=== PATIENT | female | born 1990 | race Caucasian/White ===

== ENCOUNTER 2023-10-26 21:26 | Observation (INO) | payer OTHER, SELFPAY ==
[2023-10-26 16:50] VITALS: BP 120/88
[2023-10-26] MEDS: ZOFRAN ODT (ORALLY DISINTEGRATING) 4 MG PO (16:54)
[2023-10-26 18:09] LABS: % Basophils 0.2 % (0-2); % Immature Granulocytes 0.6 % (0-0.5); % Lymphocytes 7.2 % (20.5-51.1); % Monocytes 0.8 % (1.7-9.3); % Neutrophils 91.2 % (42.2-75.2); Absolute Immature Granulocytes 0.1 10^3/uL (0-0.05); Absolute Lymphocytes 1.2 10^3/uL (1.2-3.4); Absolute Monocytes 0.1 10^3/uL (0.1-0.6); Absolute Neutrophils 15.6 10^3/uL (1.4-6.5); Hematocrit 40.3 % (37.0-47.0); Mean Corp Hgb Conc. 34.7 g/dL (33.0-37.0); Mean Corpuscular Hgb 28.6 pg (27.0-31.0); Mean Corpuscular Volume 82.4 fL (81.0-99.0); Mean Platelet Volume 10.4 fL (7.4-10.4); Nucleated Red Blood Cells % 0 %; Platelet Count 344 10^3/uL (130-400); Red Blood Cell Count 4.89 10^6/uL (4.20-5.40); Red Cell Dist. Width 13.4 % (11.5-14.5); White Blood Cell Count 17.1 10^3/uL (4.8-10.8)
--- NOTE | 2023-10-26 18:11 | ED.GENMED ---
History of Present Illness
General
Chief Complaint: Abdominal Symptoms
Source: patient
Time Seen by Provider: 10/26/23 18:01
Travel History
Have you had any contact with someone who has COVID-19?: No
Do you have any symptoms of coronavirus? Fever > 100 degrees, chills, cough, shortness of breath, sore throat, loss of taste or smell, muscle aches, or headache?: No
History of Present Illness
History of Present Illness:
33-year-old female with past medical history of cyclical vomiting syndrome presenting to the emergency department for evaluation due to persistent vomiting that started around 1 AM this past evening, persisted throughout the day, typical of her
usual cyclical vomiting. Patient states due to the of a friend she had smokes marijuana which she believes to be the trigger of her cyclical. She endorses diffuse and generalized abdominal pain but is otherwise denying any, chills, rigors,
bowel changes, urinary symptoms, back or flank pain or any other concerns. Last menstrual period was 3 weeks ago. Does not believe to be . Social history outside of marijuana was noncontributory. Family history was also noncontributory
Past History
Past History
ED Past Medical History: Other (IBS, CHS) and Other (Previous UTIs)
ED Past Surgical History: Gynecological
Patient has exhibited threatening behavior?: No
PSI?: No
Social History
Tobacco: Smoker
Alcohol: Occasional
Drug: Marijuana
Personal: Single
Living: with family
Employment: Employed
Family History
Family History: Other
Review of Systems
Review of Systems
All Other Systems: ROS reviewed and negative except as documented in HPI and ROS
Phy Exam
Physical Exam
Physical Exam:
GENERAL: Alert , in no apparent distress but does appear to be uncomfortable. clear vomitus within emesis bag
EYE: clear conjunctiva b/l
HEAD: NCAT
ENT: o/p clr, mmm.
CARDIAC: Regular rate and rhythm, no murmur.
LUNGS: Clear breath sounds bilaterally, no acute respiratory distress, no wheezes/rales/rhonchi
ABDOMEN: Soft, generalized tenderness, no r/g, no cvat
NEUROLOGICAL: Alert and oriented
SKIN: Warm and dry, skin intact.
MUSCULOSKELETAL: No edema, well perfused.
PSYCH: Normal and appropriate interaction.
Scores
Heart Failure Risk
Heart Failure Risk Score: Not Applicable
Heart Score for Chest Pain Patients
STEMI patient?: Not applicable
Withdrawal Assessment of Alcohol
Withdrawal Assessment Completed?: Not applicable
Course
Orders/Labs/Results
Orders:
Orders
10/26/23 16:53
Ondansetron Orally Disint [Zofran Odt (Orally Disintegrating)] 4 mg .ROUTE .STK-MED ONE
10/26/23 16:54
Ondansetron Orally Disint [Zofran Odt (Orally Disintegrating)] 4 mg PO NOW STA
10/26/23 17:57
Complete Blood Count/With Diff Urgent
Comprehensive Metabolic Panel Urgent
HCG, Serum Qualitative Screen Urgent
Comment: ADD ON
Lipase Urgent
10/26/23 18:05
Test Result ONCE
10/26/23 18:08
Add On- LAB Urgent
Tests Added?: hcg qualitative
10/26/23 18:10
Diphenhydramine [Benadryl] 25 mg IV NOW STA
Ketorolac [Toradol] 30 mg IV NOW STA
10/26/23 18:13
Ondansetron Injectable [Zofran] 4 mg .ROUTE .STK-MED ONE
10/26/23 18:14
0.9% Sodium Chloride 1000 ml [Nss] 1,000 ml IV BOLUS
10/26/23 18:19
Ondansetron Injectable [Zofran] 4 mg IV NOW STA
10/26/23 19:45
Electrocardiogram (*1) Urgent
Reason for Study: QTc Monitoring
EKG- Treatment ONCE
Haloperidol Lactate [Haldol] 2 mg IV NOW STA
10/26/23 19:57
0.9% Sodium Chloride 1000 ml [Nss] 1,000 ml IV BOLUS
10/26/23 20:00
0.9% Sodium Chloride 1000 ml [Nss] 1,000 ml IV BOLUS
10/26/23 20:24
HYDROmorphone [Dilaudid] 0.5 mg IV NOW STA
10/26/23 21:09
Admit/Transfer Patient As Directed
Co-Sign Provider:
Level of Care: Observation services
Assign to:: Medical/Surgical
Physician / Group: [facility]
Diagnosis: Hyperemesis
10/26/23 21:10
Code Status As Directed
Resuscitation Status: Full Code
Abnormal Lab Results
10/26/23
17:57
WBC 17.1 H 10^3/uL
(4.8-10.8)
Abs Immat Gran (auto) 0.1 H 10^3/uL
(0-0.05)
Absolute Neuts (auto) 15.6 H 10^3/uL
(1.4-6.5)
Immature Gran % 0.6 H %
(0-0.5)
Neutrophils % 91.2 H %
(42.2-75.2)
Lymphocytes % 7.2 L %
(20.5-51.1)
Monocytes % 0.8 L %
(1.7-9.3)
Carbon Dioxide 19 L mmol/L
(22-30)
Glucose 163 H mg/dl
(70-99)
Calcium 10.4 H mg/dl
(8.4-10.2)
ALT 39 H U/L
(0-35)
10/26/23 17:57
10/26/23 17:57
Vital Signs
Initial and Last Documented VS:
Initial Vital Signs
Temp Pulse Resp BP Pulse Ox
97.7 F 79 18 120/88 98
10/26/23 16:50 10/26/23 16:50 10/26/23 16:50 10/26/23 16:50 10/26/23 16:50
Last Documented Vital Signs
Temp Pulse Resp BP Pulse Ox
97.7 F 79 18 120/88 98
10/26/23 16:50 10/26/23 16:50 10/26/23 16:50 10/26/23 16:50 10/26/23 16:50
MDM/Problems Addressed
Differential Diagnosis Includes:
Exacerbation of cyclical vomiting syndrome, gastroenteritis, , electrolyte disturbance
MDM/Problems Addressed:
33-year-old female with past medical history of cyclical vomiting presenting to the emergency department for evaluation of continued and persistent vomiting since 1 AM. overall consistent with her usual cyclical vomiting. Patient does admit to
marijuana use over the last few days in relation to a close friend passing away which is the likely cause and exacerbating reason for her symptoms. Will check labs including hCG. Will treat with Zofran, Toradol and Benadryl. Patient did state to
me that often times she will require morphine for pain. I informed patient that our ER's policy is to attempt to avoid opioids for chronic conditions. Will consider this medication if symptoms do not improve.
Chronic conditions affecting care: Other (Cyclical vomiting)
Acute Exacerbation and/or Progression of Chronic Illness: Other (Cyclical vomiting)
*Pulse Oximetry
Patient hypoxic: no
*Critical Care Note
Total Time (30-74mins, 75-104mins- exclusive of procedures): Not Applicable
Data Reviewed
Review of Other/Old Records Reveals: Labs, Records and Discharge Summary
Source: patient and records
Comment
Comment:
6:36 PM: Patient's labs reviewed and noted for leukocytosis. When this was trended it appears patient has a chronic leukocytosis which is likely reactive from her persistent vomiting. Bicarb mildly low at 19 which is also likely reactive from the
amount of vomiting. ALT also mildly elevated.
7:42 PM: Patient reevaluated she started to have further nonbloody nonbilious emesis. An EKG was ordered to check patient's QT interval. As long as this is within normal limits patient will be given 2 mg of Haldol IV.
Patient Management
Discussion with other providers: Hospitalist
Escalation/DeEscalation of care consider admission/obs:
Patient continued with nausea, vomiting, and pain despite 2mg haldol IV. Based off previous need for admit and continued medical care combined with continued symptoms despite multiple rounds of medication provided, decision was made to admit
patient. Hospitalist team is aware and accepts for continued evaluation and treatment.
ED Attending Note
-
Portions of this chart may have been created with voice recognition software.� Occasional wrong word or��sound alike� substitutions may have occurred due to the inherent limitations of voice recognition software.
Discharge Plan
Departure
Patient Disposition: Admit
Date of Disposition: 10/26/23
Time of Disposition: 20:33
Presentation/result/management discussed w/ accepting MD/DO: Hospitalist
Discharge Problem:
Cyclical vomiting, intractable, Cannabinoid hyperemesis syndrome
Interventions
Interventions:
*Risk Screen - Suicide Last Done: 10/26/23 16:50
*General Assessment Last Done: 10/26/23 16:50
*Neglect/Abuse Screening Last Done: 10/26/23 16:50
*ED COVID-19 Vaccine History Last Done: 10/26/23 16:50
CF-Mifloe-Hyrjufqfwo Assessment Last Done: 10/26/23 18:00
[2023-10-26] MEDS: NSS 1000 IV ×3 (18:15→23:19)
[2023-10-26] MEDS: BENADRYL 25 MG IV (18:17)
[2023-10-26] MEDS: TORADOL 30 MG IV (18:18)
[2023-10-26] MEDS: ZOFRAN 4 MG IV (18:19)
[2023-10-26 18:29] LABS: HCG, Serum Qualitative Screen Negative
[2023-10-26 18:33] LABS: ALT (SGPT) 39 U/L (0-35); AST (SGOT) 20 U/L (14-36); Alkaline Phosphatase 72 U/L (38-126); Blood Urea Nitrogen 10 mg/dl (7-17); Calcium 10.4 mg/dl (8.4-10.2); Carbon Dioxide 19 mmol/L (22-30); Chloride 107 mmol/L (98-107); Glucose 163 mg/dl (70-99); Potassium 4.1 mmol/L (3.5-5.1); Sodium 139 mmol/L (135-145); Total Bilirubin 0.6 mg/dl (0.2-1.3); Total Protein 7.9 g/dl (6.3-8.2); eGFR > 60.00
[2023-10-26 18:48] LABS: Lipase 33 U/L (23-300)
[2023-10-26] MEDS: HALDOL 2 MG IV (19:54)
[2023-10-26] MEDS: DILAUDID 0.5 MG IV (20:27)
--- NOTE | 2023-10-26 21:08 | HPS.HSE ---
Addendum entered and electronically signed by Josep Escobedo DO 10/26/23 21:53:
Patient seen and examined independently. Agree with findings and plan as set forth by Cely Frederick PA-C.
Patient is a 33y F with PMH significant for cannabinoid hyperemesis syndrome who presents to ED c/o N/V and loose stools since 1 AM last evening. Patient reports significant recent social stressors and admits to increased use of marijuana of
late.
Patient as a prior history of similar episodes.
Ass:
Cannabinoid Hyperemesis Syndrome
Intractable N/V secondary to the above
Mild Hypovolemia secondary to the above
Reactive Leukocytosis
Anxiety / Depression
Plan:
Observe overnight for further evaluation and treatment.
IVF support, antiemetics, etc.
BZDs as needed for breakthrough pain or nausea.
Avoid narcotic medications.
Continue outpatient amitriptyline
Follow for clinical improvement.
Original Note:
Family Physician
-
Family Physician: Monica Valdez
Chief Complaint
-
Nause and Vomiting
History of Present Illness
Patient is a 33 y/o female with a past medical history of cannabinoid hyperemesis syndrome, substance abuse, anxiety, and depression who presents for nausea, vomiting, and diarrhea since 1am last night. She reports that she became upset after
learning of her friend's passing on Sunday night and smoked marijuana Sunday, Sunday, and Sunday of last week. At 1am last night she became nausea and starting experiencing intractable vomiting and diarrhea. Her diarrhea improved throughout the
day but her nausea and vomiting persisted. She admits to mild diffuse abdominal 'soreness' tonight and is still mildly nauseous at this time. She denies fever, sweats, chills, chest pain, palpitations, shortness of breath, dizziness,
lightheadedness, and hematemesis. She reports symptoms are very similar to prior episodes.
Medical History
Past Medical History
Past Medical History: Reports Other
Additional Past Medical History:
Irritable Bowel Syndrome
Cyclic Vomiting Syndrome
GERD
Anxiety / Depression
Past Surgical History: Reports None
Social History
Tobacco: Smoker (1 pack per day)
Alcohol: Occasional (Occasional glass of wine on weekends)
Drug: Marijuana
Family History
Family History: Not pertinent
Allergies / Home Medications
Allergies reflects when Allergies were last updated in [facility].
Home Medications with original date entered in [facility]
Allergy/Medication List:
Allergies
Allergy/AdvReac Type Severity Reaction Status Date / Time
No Known Allergies Allergy Verified 10/26/23 16:51
Home Medications
amitriptyline 10 mg tablet 30 mg PO HS Mental Health/Anxiety 02/25/23
Review of Systems
-
A 12 point ROS was completed and negative except as noted: Yes
Constitutional: Denies Fever or Chills
Respiratory: Denies Cough or Trouble Breathing
Cardiac: Denies Chest Pain or Palpitations
Abdomen/GI: Reports See HPI
Physical Exam
Vital Signs
Vital Signs
Temp Pulse Resp BP Pulse Ox
97.7 F 79 18 120/88 98
10/26/23 16:50 10/26/23 16:50 10/26/23 16:50 10/26/23 16:50 10/26/23 16:50
Physical Exam
General: Comfortable and Conversant
HEENT: Anicteric and Atraumatic
Respiratory: Clear and Non Labored Respirations
Cardiac: S1/S2 and Regular Rhythm
GI: Soft and Tender (Mild soreness throughout, without rebound or guarding)
Rectal: Deferred by Provider
Musculoskeletal: No Clubbing, No Cyanosis and No Edema
Skin: Warm and Dry
Neuro: Awake, Alert, Oriented and Nonfocal/grossly intact
Psych: Calm
Laboratory Results
-
10/26/23 17:57
10/26/23 17:57
Laboratory Results
Total Bilirubin 0.6 mg/dl (0.2-1.3) 10/26/23 17:57
AST 20 U/L (14-36) 10/26/23 17:57
ALT 39 U/L (0-35) H 10/26/23 17:57
Alkaline Phosphatase 72 U/L (38-126) 10/26/23 17:57
Lipase 33 U/L (23-300) 10/26/23 17:57
Data Reviewed
-
Lab Data: Labs Reviewed by me
Impression/Plan
-
Cyclic Vomiting Syndrome, likely Cannabinoid Hyperemesis
-Observe overnight for symptom control
-Allow clear liquids and advance diet as tolerate
-Continue IVFs and anti-emetics
Leukocytosis, likely reactive
-Continue to monitor
Hypercalcemia, likely related to volume depletion'
-Recheck calcium in AM
Anxiety/Depression
-Continue amitriptyline
Tobacco Use Disorder
-Encourage smoking cessation
-Continue nicotine patch
DVT proph: SCDs
Code Status: Full Code
[2023-10-26 22:50] VITALS: BP 137/86; BMI 31.9
[2023-10-26] MEDS: ELAVIL 30 MG PO (23:20)
[2023-10-27] MEDS: ZOFRAN 4 MG IV ×2 (00:13→06:08)
[2023-10-27] MEDS: BENADRYL 25 MG PO (00:42)
[2023-10-27] MEDS: TYLENOL 650 MG PO (06:08)
[2023-10-27 07:00] VITALS: BP 103/68
[2023-10-27 08:01] LABS: Hematocrit 32.8 % (37.0-47.0); Hemoglobin 11.3 g/dL (12.0-16.0); Mean Corp Hgb Conc. 34.5 g/dL (33.0-37.0); Mean Corpuscular Hgb 28.5 pg (27.0-31.0); Mean Corpuscular Volume 82.8 fL (81.0-99.0); Red Blood Cell Count 3.96 10^6/uL (4.20-5.40); Red Cell Dist. Width 13.6 % (11.5-14.5); White Blood Cell Count 14.6 10^3/uL (4.8-10.8)
[2023-10-27] MEDS: NICODERM TRANSDERMAL 14 MG TRANSDERM (08:13)
[2023-10-27] MEDS: NSS 1000 IV (08:14)
[2023-10-27 08:17] LABS: Blood Urea Nitrogen 4 mg/dl (7-17); Calcium 8.2 mg/dl (8.4-10.2); Carbon Dioxide 22 mmol/L (22-30); Chloride 107 mmol/L (98-107); Estimated Creatinine Clearance > 125 ml/min; Glucose 112 mg/dl (70-99); Magnesium 1.8 mg/dl (1.6-2.3); Potassium 3.7 mmol/L (3.5-5.1); Sodium 135 mmol/L (135-145); eGFR > 60.00
--- NOTE | 2023-10-27 10:02 | W.PN.HOSP.TC ---
Today's Communication/Plan
-
Low residue diet
Discharge
Assessment / Plan
Assessment / Plan
Gen-AAOx3, NAD, obese
HEENT-NC, AT, anicteric, clear oral mm
Neck-supple
CV-reg, no M, +S1/S2
Lungs-clear B/L
Abd-soft, NT, ND
Ext-no edema
Musculoskeletal-no cyanosis, clubbing
Skin-warm and dry
Neuro-grossly non-focal
Psych-calm, cooperative
Cannabis hyperemesis syndrome -clinically improving. Tolerated clear liquids for breakfast. Advance to low residue diet for lunch. Anticipate discharge later today if stable. She is requesting Zofran as needed on discharge. Will send a
prescription to her pharmacy. Counseled patient on need to abstain from further marijuana use.
Obesity due to excess calories
Full code
Dispo -likely discharge later today if she remains stable. Outpatient follow-up.
Anticipated Discharge: Today
Subjective/Interval History
-
Date of Service: October 27, 2023
Patient seen and examined. Overall feeling better. No complaints.
Objective Data
-
Labs:
Laboratory Results
10/27/23
07:24
WBC 14.6 H
Hgb 11.3 L
Hct 32.8 L
Plt Count Pending
Sodium 135
Potassium 3.7
Chloride 107
Carbon Dioxide 22
BUN 4 L
Creatinine 0.5 L
Glucose 112 H
Calcium 8.2 L D
Vital Signs:
Vital Signs
Temp Pulse Resp BP Pulse Ox
98.5 F 79 16 103/68 96
10/27/23 07:00 10/27/23 07:00 10/27/23 07:00 10/27/23 07:00 10/27/23 07:00
I&O
10/26/23 10/27/23 10/28/23
06:59 06:59 06:59
Intake Total 0 / 312
Balance 3119 / 312
Review of Systems
-
History Source: Patient
All other systems: Reviewed and negative
--- NOTE | 2023-10-27 10:05 | W.DS.TRANS ---
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
-
Discharge Instructions:
Discharge Diagnosis/Procedures Cannabis hyperemesis syndrome
Diet Low Residue
Activity As tolerated
Driving Restrictions As prior to admission
Bathing Restrictions None
Instructions:
Stand-Alone Forms:
Changes to Home Medications: No
Discharge Medications:
DC Medications w/original date entered in [facility]
amitriptyline 10 mg tablet 30 mg PO HS Mental Health/Anxiety 02/25/23
ondansetron HCl 4 mg tablet 4 mg PO Q6H PRN nausea and vomiting #20 tabs 10/27/23
Home Medication Changes
Pending Results: No
--- NOTE | 2023-10-27 10:40 | CM ---
CM following re: discharge planning.
reviewed pt's chart, met with [t.
Pt is a 33 year old female, admitted with OBS status and primary dx of Cannabis hyperemesis syndrome. Per MD symptoms have been improved and pt will be discharged today.
Pt reports she lives with her SO Andrew and daughter Nicolasa 4yo in a 2nd floor home with 12 step to enter living area. She is independent in all activities of daily living.
No hx of VN/SNF.
Pharmacy [facility]
PCP: [facility], [facility]
Discharge order is noted. Pt is aware and she stated she will drive home, her car is parked on the parking lot.
D/C plan: Home no needs. Pt will drive home.
[2023-10-27 15:00] VITALS: BP 108/59
== END 2023-10-27 17:30 | disposition home or self-care (01) ==
LOC: 4 WEST ACU 21:26
PROVIDERS: Physician Assistant Medical; Student in an Organized Health Care Education/Training Program; ADMITTING PHYSICIAN Hospitalist; ATTENDING PHYSICIAN Hospitalist; EMERGENCY PHYSICIAN Emergency Medicine; FAMILY PHYSICIAN Family Medicine
DX: R11.2 Nausea with vomiting, unspecified (principal); F12.90 Cannabis use, unspecified, uncomplicated; R10.9 Unspecified abdominal pain; R19.7 Diarrhea, unspecified; R10.84 Generalized abdominal pain; F17.210 Nicotine dependence, cigarettes, uncomplicated; D72.829 Elevated white blood cell count, unspecified; F41.9 Anxiety disorder, unspecified; F32.A Depression, unspecified; E86.1 Hypovolemia; K21.9 Gastro-esophageal reflux disease without esophagitis; E83.52 Hypercalcemia; F17.200 Nicotine dependence, unspecified, uncomplicated; E66.09 Other obesity due to excess calories; Z68.31 Body mass index [BMI] 31.0-31.9, adult; Z87.440 Personal history of urinary (tract) infections
CPT/HCPCS: 80048; 80053; 83690; 83735; 84703; 85025; 85027; 93005; 96361; 96374; 96375; 99284; G0378

== ENCOUNTER 2023-10-28 13:18 | Emergency (ER) | payer OTHER, SELFPAY ==
[2023-10-28 13:25] VITALS: BP 139/87
[2023-10-28] MEDS: DILAUDID 0.5 MG IV (14:28)
[2023-10-28] MEDS: PROTONIX IV IV (14:29)
[2023-10-28] MEDS: PROTONIX IV 80 MG IV (14:35)
--- NOTE | 2023-10-28 14:37 | ED.GENMED ---
History of Present Illness
General
Chief Complaint: Abdominal Pain
Source: patient and records
Exam Limitations: none
Time Seen by Provider: 10/28/23 14:16
Nursing documentation reviewed up to this point in time: agreed with
Travel History
Have you had any contact with someone who has COVID-19?: No
Do you have any symptoms of coronavirus? Fever > 100 degrees, chills, cough, shortness of breath, sore throat, loss of taste or smell, muscle aches, or headache?: No
History of Present Illness
History of Present Illness:
Patient is a 33-year-old female who was discharged yesterday after being admitted for cyclical vomiting and presents to the emergency department with nausea, vomiting and abdominal pain. Patient states her vomiting never really stopped and has
gotten progressively worse. Patient denies fever or chills, chest pain, shortness of breath, nasal congestion or cough. Patient denies any diarrhea although she said when this started 3 days ago that she had 1 episode but none since. Patient
denies any symptoms.
Past History
Past History
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
ED Past Surgical History: Gynecological
Patient has exhibited threatening behavior?: No
PSI?: No
Social History
Tobacco: Smoker
Alcohol: Occasional
Drug: Marijuana
Personal: Single
Living: with family
Employment: Employed
Family History
Family History: Other
Review of Systems
Review of Systems
All Other Systems: ROS reviewed and negative except as documented in HPI and ROS
Constitutional: Reports no symptoms
EENT: Reports no symptoms
Respiratory: Reports no symptoms
Cardiac: Reports no symptoms
ABD/GI: Reports abdominal pain, nausea, vomiting and anorexia; Denies diarrhea or constipated
: Reports no symptoms
Musculoskeletal: Reports no symptoms
Skin: Reports no symptoms
Neurological: Reports no symptoms
Hematologic/Lymphatic: Reports no symptoms
Phy Exam
Physical Exam
Physical Exam:
Physical Exam
General: moderate distress, alert and crying, well nourished, dry mucous membranes
HENT: Normocephalic, supple with no lymphadenopathy, no thyromegaly
Eyes: Clear sclera, conjuctiva without injection
Heart: Regular rhythm and rate. No S3, S4. No murmur.
Lungs: No respiratory distress, no stridor, lung sounds clear and equal bilaterally
Abdomen: Soft, minimal diffuse tenderness without guarding or rebound, no organomegaly, no CVA tenderness, BS good
Neuro: Alert and oriented x 3, CN II - XII intact, no motor focality, no cerebellar dysfunction
Skin: no rash
Psychiatric: well kept. interactive and cooperative. Anxious
Extremities: No edema, cyanosis, tenderness, Good and equal peripheral pulses.
Course
Orders/Labs/Results
Orders:
Orders
10/28/23 14:16
HYDROmorphone [Dilaudid] 0.5 mg IV NOW STA
Pantoprazole [Protonix IV] 80 mg IV NOW STA
10/28/23 14:35
Pantoprazole [Protonix IV] 40 mg .ROUTE .STK-MED ONE
10/28/23 14:39
Complete Blood Count/With Diff Urgent
Comprehensive Metabolic Panel Urgent
Lipase Urgent
10/28/23 15:00
ChlorproMAZINE [Thorazine] 25 mg 0.9% Sodium Chloride 50 ml [Nss] 50 ml IV Q8H
Abnormal Lab Results
10/28/23
14:39
WBC 13.8 H 10^3/uL
(4.8-10.8)
MPV 11.0 H fL
(7.4-10.4)
Abs Immat Gran (auto) 0.1 H 10^3/uL
(0-0.05)
Absolute Neuts (auto) 11.0 H 10^3/uL
(1.4-6.5)
Immature Gran % 0.9 H %
(0-0.5)
Neutrophils % 79.4 H %
(42.2-75.2)
Lymphocytes % 17.3 L %
(20.5-51.1)
BUN 6 L mg/dl
(7-17)
Glucose 117 H mg/dl
(70-99)
10/28/23 14:39
10/28/23 14:39
Vital Signs
Initial and Last Documented VS:
Initial Vital Signs
Temp Pulse Resp BP Pulse Ox
98.4 F 66 18 139/87 99
10/28/23 13:25 10/28/23 13:25 10/28/23 13:25 10/28/23 13:25 10/28/23 13:25
Last Documented Vital Signs
Temp Pulse Resp BP Pulse Ox
98.4 F 78 18 109/64 97
10/28/23 13:25 10/28/23 20:21 10/28/23 20:21 10/28/23 20:21 10/28/23 20:21
*Pulse Oximetry
Patient hypoxic: no
*EKG
Interpreted by ED Provider?: NA
*Commissioned Fire Officer Interpretation
Rate: Commissioned Fire Officer- N/A
*Critical Care Note
Total Time (30-74mins, 75-104mins- exclusive of procedures): Not Applicable
Update Note
Update Note:
Much improved, eating and drinking. Patient will be discharged
ED Attending Note
-
Portions of this chart may have been created with voice recognition software.� Occasional wrong word or��sound alike� substitutions may have occurred due to the inherent limitations of voice recognition software.
Discharge Plan
Departure
Patient Disposition: Home (Routine Discharge)
Date of Disposition: 10/28/23
Time of Disposition: 20:27
Patient with high blood pressure during this ER visit?: No
Condition: Fair
Covid-19: Not Applicable
Discharge Problem:
Cyclic vomiting syndrome, Dehydration
Instructions: Nausea and Vomiting, Adult (DC)
Prescriptions:
New
promethazine 25 mg suppository
25 mg [place] Q6H PRN (Reason: nausea and vomiting) Qty: 12 0RF
pantoprazole [Protonix] 40 mg tablet,delayed release (DR/EC)
40 mg PO BID Qty: 30 0RF
No Action
amitriptyline 10 mg Tablet
30 mg PO HS
ondansetron HCl 4 mg tablet
4 mg PO Q6H PRN (Reason: nausea and vomiting) Qty: 20 0RF
Referrals:
UNKNOWN - PT DOES,NOT KNOW [Family Provider] -
Activity Restrictions/Additional Instructions:
Continue present medications and therapy. Any problems please return otherwise follow-up with your family doctor in 2 to 3 days.
Interventions
Interventions:
*Risk Screen - Suicide Last Done: 10/28/23 19:14
*General Assessment Last Done: 10/28/23 19:14
*Neglect/Abuse Screening Last Done: 10/28/23 19:14
*ED COVID-19 Vaccine History Last Done: 10/28/23 19:14
MK-Cnfoey-Axwcwstzqi Assessment Last Done: 10/28/23 13:57
Discharge Date and Time
Print Language: CROATIAN
[2023-10-28 14:44] LABS: % Basophils 0.4 % (0-2); % Immature Granulocytes 0.9 % (0-0.5); % Lymphocytes 17.3 % (20.5-51.1); % Neutrophils 79.4 % (42.2-75.2); Absolute Basophils 0.1 10^3/uL (0-0.2); Absolute Immature Granulocytes 0.1 10^3/uL (0-0.05); Absolute Lymphocytes 2.4 10^3/uL (1.2-3.4); Absolute Monocytes 0.3 10^3/uL (0.1-0.6); Hematocrit 39.6 % (37.0-47.0); Hemoglobin 13.5 g/dL (12.0-16.0); Mean Corp Hgb Conc. 34.1 g/dL (33.0-37.0); Mean Corpuscular Volume 85.2 fL (81.0-99.0); Nucleated Red Blood Cells % 0 %; Red Blood Cell Count 4.65 10^6/uL (4.20-5.40); Red Cell Dist. Width 13.6 % (11.5-14.5); White Blood Cell Count 13.8 10^3/uL (4.8-10.8)
[2023-10-28 14:55] LABS: ALT (SGPT) 30 U/L (0-35); AST (SGOT) 23 U/L (14-36); Albumin 4.7 g/dl (3.5-5.0); Alkaline Phosphatase 50 U/L (38-126); Blood Urea Nitrogen 6 mg/dl (7-17); Calcium 9.3 mg/dl (8.4-10.2); Carbon Dioxide 25 mmol/L (22-30); Chloride 103 mmol/L (98-107); Glucose 117 mg/dl (70-99); Lipase 43 U/L (23-300); Potassium 3.7 mmol/L (3.5-5.1); Sodium 137 mmol/L (135-145); Total Bilirubin 0.6 mg/dl (0.2-1.3); Total Protein 7.4 g/dl (6.3-8.2); eGFR > 60.00
[2023-10-28] MEDS: THORAZINE 51 MG IV (15:12)
[2023-10-28 15:13] LABS: Platelet Count 328 10^3/uL (130-400)
[2023-10-28 20:21] VITALS: BP 109/64
== END 2023-10-28 20:49 | disposition home or self-care (01) ==
LOC: EMR 13:18
PROVIDERS: Student in an Organized Health Care Education/Training Program; EMERGENCY PHYSICIAN Emergency Medicine
DX: R11.15 Cyclical vomiting syndrome unrelated to migraine (principal); E86.0 Dehydration; F17.200 Nicotine dependence, unspecified, uncomplicated
CPT/HCPCS: 99284; 96374; 96375 ×2; 80053; 83690; 85025

== ENCOUNTER 2023-11-02 10:11 | Emergency (ER) | payer OTHER, SELFPAY ==
[2023-11-02 10:18] VITALS: BP 138/88
[2023-11-02] MEDS: NSS 1000 IV (11:28)
[2023-11-02] MEDS: DILAUDID 0.5 MG IV (11:28)
[2023-11-02] MEDS: HALDOL 2 MG IV (11:29)
[2023-11-02 11:32] LABS: % Basophils 0.3 % (0-2); % Eosinophils 0.1 % (0-6); % Immature Granulocytes 0.7 % (0-0.5); % Lymphocytes 11.3 % (20.5-51.1); % Monocytes 2.1 % (1.7-9.3); % Neutrophils 85.5 % (42.2-75.2); Absolute Basophils 0.1 10^3/uL (0-0.2); Absolute Immature Granulocytes 0.1 10^3/uL (0-0.05); Absolute Lymphocytes 2.1 10^3/uL (1.2-3.4); Absolute Monocytes 0.4 10^3/uL (0.1-0.6); Absolute Neutrophils 15.8 10^3/uL (1.4-6.5); Hematocrit 40.5 % (37.0-47.0); Hemoglobin 13.8 g/dL (12.0-16.0); Mean Corp Hgb Conc. 34.1 g/dL (33.0-37.0); Mean Corpuscular Hgb 28.9 pg (27.0-31.0); Mean Corpuscular Volume 84.9 fL (81.0-99.0); Mean Platelet Volume 10.2 fL (7.4-10.4); Nucleated Red Blood Cells % 0 %; Platelet Count 321 10^3/uL (130-400); Red Blood Cell Count 4.77 10^6/uL (4.20-5.40); Red Cell Dist. Width 13.7 % (11.5-14.5); White Blood Cell Count 18.5 10^3/uL (4.8-10.8)
--- NOTE | 2023-11-02 11:50 | ED.GENMED ---
History of Present Illness
General
Chief Complaint: Abdominal Symptoms
Source: patient
Exam Limitations: none
Time Seen by Provider: 11/02/23 10:54
Travel History
Have you had any contact with someone who has COVID-19?: No
Do you have any symptoms of coronavirus? Fever > 100 degrees, chills, cough, shortness of breath, sore throat, loss of taste or smell, muscle aches, or headache?: No
History of Present Illness
History of Present Illness:
33-year-old female presents with recurrent nausea vomiting abdominal pain. She was here last week and admitted and discharged couple days ago. She thought to have cyclical vomiting syndrome likely secondary to cannabis hyperemesis. She notes
diffuse abdominal pain. No fever or chest pain. No shortness of breath. She cakey rating down. No other pains at this time
Past History
Past History
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
ED Past Surgical History: Gynecological
Patient has exhibited threatening behavior?: No
PSI?: No
Social History
Tobacco: Smoker
Alcohol: Occasional
Drug: Marijuana
Personal: Single
Living: with family
Employment: Employed
Family History
Family History: Other
Phy Exam
Physical Exam
Physical Exam:
General: Uncomfortable appearing female no acute respiratory distress
HEENT: Normocephalic atraumatic
Heart: Regular rate and rhythm no murmurs
Lungs: Clear no wheeze or rales
Abdomen: Soft mildly diffusely tender normal bowel sounds
Extremities: No cyanosis
Skin: Warm no rash
Course
Orders/Labs/Results
Orders:
Orders
11/02/23 11:10
0.9% Sodium Chloride 1000 ml [Nss] 1,000 ml IV BOLUS
Haloperidol Lactate [Haldol] 2 mg IV NOW STA
11/02/23 11:11
Electrocardiogram (*1) Urgent
Reason for Study: QTc Monitoring
EKG- Treatment ONCE
11/02/23 11:14
HYDROmorphone [Dilaudid] 0.5 mg IV NOW STA
11/02/23 11:25
Complete Blood Count/With Diff Urgent
Comprehensive Metabolic Panel Urgent
Lipase Urgent
Abnormal Lab Results
11/02/23
11:25
WBC 18.5 H 10^3/uL
(4.8-10.8)
Abs Immat Gran (auto) 0.1 H 10^3/uL
(0-0.05)
Absolute Neuts (auto) 15.8 H 10^3/uL
(1.4-6.5)
Immature Gran % 0.7 H %
(0-0.5)
Neutrophils % 85.5 H %
(42.2-75.2)
Lymphocytes % 11.3 L %
(20.5-51.1)
Glucose 126 H mg/dl
(70-99)
11/02/23 11:25
11/02/23 11:25
Vital Signs
Initial and Last Documented VS:
Initial Vital Signs
Temp Pulse Resp BP Pulse Ox
97.6 F 77 20 138/88 100
11/02/23 10:18 11/02/23 10:18 11/02/23 10:18 11/02/23 10:18 11/02/23 10:18
Last Documented Vital Signs
Temp Pulse Resp BP Pulse Ox
97.6 F 68 18 103/72 96
11/02/23 10:18 11/02/23 13:44 11/02/23 13:44 11/02/23 13:44 11/02/23 13:44
MDM/Problems Addressed
Differential Diagnosis Includes:
Intractable nausea and vomiting history of cannabis hyperemesis syndrome. Will check labs again start IV start with Haldol for nausea 1 dose of Dilaudid ordered for pain.
*Critical Care Note
Total Time (30-74mins, 75-104mins- exclusive of procedures): Not Applicable
Update Note
Update Note:
Patient reevaluated multiple times. Pain is improved nausea is improved. She was able to tolerate some dhaval pa but got nauseous afterwards. Discussed with her admission versus going home. She has been mated multiple times for this. Explained
that hospital mission will not fix the issue. She is willing to go home. Will try Phenergan suppositories for nausea. I suspect hyperemesis from cannabis use
ED Attending Note
-
Portions of this chart may have been created with voice recognition software.� Occasional wrong word or��sound alike� substitutions may have occurred due to the inherent limitations of voice recognition software.
Discharge Plan
Departure
Patient Disposition: Home (Routine Discharge)
Date of Disposition: 11/02/23
Time of Disposition: 15:17
Patient with high blood pressure during this ER visit?: No
Discharge Problem:
Cyclic vomiting syndrome
Instructions: Nausea and Vomiting, Adult (DC)
Prescriptions:
New
promethazine 25 mg suppository
25 mg NC Q4H PRN (Reason: nausea and vomiting) Qty: 12 0RF
No Action
amitriptyline 10 mg Tablet
30 mg PO HS
ondansetron HCl 4 mg tablet
4 mg PO Q6H PRN (Reason: nausea and vomiting) Qty: 20 0RF
promethazine 25 mg suppository
25 mg NC Q6H PRN (Reason: nausea and vomiting) Qty: 12 0RF
pantoprazole [Protonix] 40 mg tablet,delayed release (DR/EC)
40 mg PO BID Qty: 30 0RF
Referrals:
Monica Valdez DO [Family Provider] -
Activity Restrictions/Additional Instructions:
Drink plenty clear liquids. Avoid marijuana use. Use Phenergan suppositories as needed for nausea. Return if worse
Interventions
Interventions:
*Risk Screen - Suicide Last Done: 11/02/23 11:48
*General Assessment Last Done: 11/02/23 11:47
*Neglect/Abuse Screening Last Done: 11/02/23 11:47
*ED COVID-19 Vaccine History Last Done: 11/02/23 10:18
FI-Ppxrwf-Ikqhgivpqm Assessment Last Done: 11/02/23 11:46
Discharge Date and Time
Print Language: IVORIAN
[2023-11-02 11:56] LABS: ALT (SGPT) 20 U/L (0-35); AST (SGOT) 18 U/L (14-36); Albumin 4.8 g/dl (3.5-5.0); Alkaline Phosphatase 59 U/L (38-126); Blood Urea Nitrogen 12 mg/dl (7-17); Carbon Dioxide 26 mmol/L (22-30); Chloride 98 mmol/L (98-107); Glucose 126 mg/dl (70-99); Potassium 3.6 mmol/L (3.5-5.1); Sodium 136 mmol/L (135-145); Total Bilirubin 0.8 mg/dl (0.2-1.3); Total Protein 7.6 g/dl (6.3-8.2); eGFR > 60.00
[2023-11-02 12:13] LABS: Lipase 57 U/L (23-300)
[2023-11-02 13:44] VITALS: BP 103/72
== END 2023-11-02 15:45 | disposition home or self-care (01) ==
LOC: EMR 10:11
PROVIDERS: Physician Assistant; EMERGENCY PHYSICIAN Emergency Medicine; FAMILY PHYSICIAN Family Medicine
DX: R11.15 Cyclical vomiting syndrome unrelated to migraine (principal); F17.200 Nicotine dependence, unspecified, uncomplicated
CPT/HCPCS: 99284; 96374; 96375; 96361; 80053; 83690; 85025; 93005

== ENCOUNTER 2025-03-22 13:14 | Emergency (ER) | payer OTHER, SELFPAY ==
[2025-03-22 13:16] VITALS: BP 136/100
[2025-03-22 14:08] VITALS: BMI 31.3
--- NOTE | 2025-03-22 14:10 | ED.GENMED ---
History of Present Illness
General
Chief Complaint: Abdominal Symptoms
Source: patient
Exam Limitations: none
Time Seen by Provider: 03/22/25 13:43
Nursing documentation reviewed up to this point in time: agreed with
History of Present Illness
History of Present Illness:
34-year-old female with history of IBS, cyclical vomiting presents with nausea, vomiting, and abdominal pain that started on Sunday, lasting for two days. She reports a history of cyclic vomiting syndrome and believes it might be related to her
recent cannabis use at a wedding 3 nights ago. She took Zofran 8 a.m. with no relief. The patient denies having fever, diarrhea, or constipation but reports abdominal pain attributed to vomiting and a known umbilical hernia. She recalls that
haloperidol was effective during a previous similar episode and OK to get it again along with intravenous fluids.
Past History
Past History
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
ED Past Surgical History: Gynecological
Patient has exhibited threatening behavior?: No
PSI?: No
Social History
Tobacco: Smoker
Alcohol: Occasional
Drug: Marijuana
Personal: Single
Living: with family
Employment: Employed
Family History
Family History: Other
Review of Systems
Review of Systems
Allergies reviewed?: Yes
All Other Systems: ROS reviewed and negative except as documented in HPI and ROS
Phy Exam
Physical Exam
Physical Exam:
GENERAL: No acute distress. A&Ox3.
CONSTITUTIONAL: Afebrile.
EYES: clear, conjunctivae normal
ENMT: moist mucus membranes, Pharynx nl
RESPIRATORY: Regular respirations, nonlabored, lungs clear.
CARDIOVASCULAR: Regular rate and rhythm, no murmurs, no rubs.
GI: Actively retching and vomiting.
MUSCULOSKELETAL: Moves with ease. Well perfused.
SKIN: Warm, dry, pink
PSYCH: Anxious mood and affect. Well kept, interactive and appropriate
NEUROLOGIC: Awake, alert and oriented. No focal neurological deficits
Course
Orders/Labs/Results
Orders:
Orders
03/22/25 14:08
0.9% Sodium Chloride 1000 ml [Nss] 1,000 ml IV BOLUS
Haloperidol Lactate [Haldol] 2 mg IV NOW STA
03/22/25 14:22
Complete Blood Count/With Diff Urgent
Comprehensive Metabolic Panel Urgent
Lipase Urgent
03/22/25 14:59
Electrocardiogram (*1) Urgent
Reason for Study: QTc Monitoring
EKG- Treatment ONCE
03/22/25 16:17
Ketorolac [Toradol] 15 mg IV NOW STA
Ondansetron Injectable [Zofran] 4 mg IV NOW STA
Abnormal Lab Results
03/22/25
14:22
WBC 10.9 H 10^3/uL
(4.8-10.8)
MPV 10.6 H fL
(7.4-10.4)
Absolute Neuts (auto) 8.9 H 10^3/uL
(1.4-6.5)
Neutrophils % 82.2 H %
(42.2-75.2)
Lymphocytes % 14.2 L %
(20.5-51.1)
Potassium 3.4 L mmol/L
(3.5-5.1)
Glucose 128 H mg/dl
(70-99)
Total Bilirubin 1.5 H mg/dl
(0.2-1.3)
03/22/25 14:22
03/22/25 14:22
Vital Signs
Initial and Last Documented VS:
Initial Vital Signs
Temp Pulse Resp BP Pulse Ox
98.8 F 81 18 136/100 99
03/22/25 13:16 03/22/25 13:16 03/22/25 13:16 03/22/25 13:16 03/22/25 13:16
Last Documented Vital Signs
Temp Pulse Resp BP Pulse Ox
98.8 F 66 20 106/65 98
03/22/25 13:16 03/22/25 17:00 03/22/25 17:00 03/22/25 17:00 03/22/25 17:00
MDM/Problems Addressed
Differential Diagnosis Includes:
Gastritis, pancreatitis, cyclic vomiting from cannabis
MDM/Problems Addressed:
34-year-old female with history of IBS, cyclical vomiting presents with nausea, vomiting, and abdominal pain that started on Sunday, lasting for two days. She reports a history of cyclic vomiting syndrome and believes it might be related to her
recent cannabis use at a wedding 3 nights ago. She took Zofran 8 a.m. with no relief. The patient denies having fever, diarrhea, or constipation but reports abdominal pain attributed to vomiting and a known umbilical hernia. She recalls that
haloperidol was effective during a previous similar episode and OK to get it again along with intravenous fluids.
EKG NSR with normal QTc
3:30 PM:
CBC with no clinically significant abnormality
CMP with no clinically significant abnormality
Lipase normal
Patient resting comfortably after IVF's and Haldol
4:20 p.m.
Pt feeling better, no further vomiting. Requesting Toradol for abd pain from vomiting so much
5:10 p.m.
Pt feeing much better, wants to go home
Tolerating po fluids
*Pulse Oximetry
SaO2: 99
Oxygen Mode of Delivery: Room air
Patient hypoxic: no
*EKG
EKG Intrepretation Date: 03/22/25
Interpretation: normal
Heart Rate: 68
Rate: normal
Rhythm: sinus
[place]: normal axis
Interval: normal interval
QRS Pattern: normal QRS
Ischemia: no ischemia
*Critical Care Note
Total Time (30-74mins, 75-104mins- exclusive of procedures): Not Applicable
ED Attending Note
-
Portions of this chart may have been created with voice recognition software.� Occasional wrong word or��sound alike� substitutions may have occurred due to the inherent limitations of voice recognition software.
Discharge Plan
Departure
Patient Disposition: Home (Routine Discharge)
Date of Disposition: 03/22/25
Time of Disposition: 17:08
Patient with high blood pressure during this ER visit?: No
Condition: Good
Discharge Problem:
Cannabinoid hyperemesis syndrome
Instructions: Cannabis hyperemesis syndrome
Prescriptions:
New
ondansetron 4 mg tablet,disintegrating
4 mg PO Q8H PRN (Reason: nausea and vomiting) 5 Days Qty: 14 0RF
No Action
ondansetron HCl 4 mg tablet
4 mg PO Q6H PRN (Reason: nausea and vomiting) Qty: 20 0RF
Referrals:
UNKNOWN - PT DOES,NOT KNOW [Family Provider]
Activity Restrictions/Additional Instructions:
As we discussed, I sent a prescription to your pharmacy for Zofran to use as needed for nausea and vomiting.
Avoid marijuana use.
Interventions
Interventions:
*Risk Screen - Suicide Last Done: 03/22/25 13:18
*General Assessment Last Done: 03/22/25 13:18
*Neglect/Abuse Screening Last Done: 03/22/25 13:18
*ED- Fall Risk Assessment Last Done: 03/22/25 14:08
*ED COVID-19 Vaccine History Last Done: 03/22/25 13:18
*Nursing Disposition Last Done: 03/22/25 17:20
[place]-Zdiwhm-Lktqilebbo Assessment Last Done: 03/22/25 14:29
Discharge Date and Time
Discharge Date/Time: 03/22/25 17:32
Print Language: MONGOLIAN
[2025-03-22] MEDS: NSS 1000 IV (14:28)
[2025-03-22 14:29] VITALS: BP 137/88
[2025-03-22 14:41] LABS: Hematocrit 41.8 % (37.0-47.0); Hemoglobin 14.2 g/dL (12.0-16.0); Mean Corp Hgb Conc. 34.0 g/dL (33.0-37.0); Mean Corpuscular Volume 82.3 fL (81.0-99.0); Nucleated Red Blood Cells % 0 %; Platelet Count 308 10^3/uL (130-400); Red Cell Dist. Width 13.3 % (11.5-14.5)
[2025-03-22] MEDS: HALDOL 2 MG IV (14:58)
[2025-03-22 15:00] LABS: ALT (SGPT) 25 U/L (0-35); AST (SGOT) 23 U/L (14-36); Albumin 4.5 g/dl (3.5-5.0); Alkaline Phosphatase 53 U/L (38-126); Blood Urea Nitrogen 10 mg/dl (7-17); Calcium 9.3 mg/dl (8.4-10.2); Carbon Dioxide 27 mmol/L (22-30); Chloride 101 mmol/L (98-107); Estimated Creatinine Clearance 125 ml/min; Glucose 128 mg/dl (70-99); Lipase 54 U/L (23-300); Potassium 3.4 mmol/L (3.5-5.1); Sodium 137 mmol/L (135-145); Total Protein 7.2 g/dl (6.3-8.2); eGFR > 60.00
[2025-03-22 15:02] VITALS: BP 140/82
[2025-03-22 16:00] VITALS: BP 108/77
[2025-03-22] MEDS: ZOFRAN 4 MG IV (16:23)
[2025-03-22] MEDS: TORADOL 15 MG IV (16:23)
[2025-03-22 17:00] VITALS: BP 106/65
== END 2025-03-22 17:32 | disposition home or self-care (01) ==
LOC: EMR 13:14
PROVIDERS: Registered Nurse; EMERGENCY PHYSICIAN Emergency Medicine
DX: R11.2 Nausea with vomiting, unspecified (principal); F12.90 Cannabis use, unspecified, uncomplicated; K58.9 Irritable bowel syndrome, unspecified; K42.9 Umbilical hernia without obstruction or gangrene; F17.200 Nicotine dependence, unspecified, uncomplicated
CPT/HCPCS: 99284; 96374; 96375 ×2; 96361; 80053; 83690; 85025; 93005

== ENCOUNTER 2025-06-01 15:47 | Emergency (ER) | payer OTHER, SELFPAY ==
[2025-06-01 15:50] VITALS: BP 113/78
[2025-06-01 16:17] LABS: Hematocrit 41.8 % (37.0-47.0); Hemoglobin 14.3 g/dL (12.0-16.0); Mean Corp Hgb Conc. 34.2 g/dL (33.0-37.0); Mean Corpuscular Volume 85.3 fL (81.0-99.0); Nucleated Red Blood Cells % 0 %; Platelet Count 371 10^3/uL (130-400); Red Cell Dist. Width 13.2 % (11.5-14.5)
[2025-06-01 16:30] LABS: ALT (SGPT) 17 U/L (0-35); AST (SGOT) 15 U/L (14-36); Albumin 4.7 g/dl (3.5-5.0); Alkaline Phosphatase 60 U/L (38-126); Blood Urea Nitrogen 7 mg/dl (7-17); Calcium 9.7 mg/dl (8.4-10.2); Carbon Dioxide 22 mmol/L (22-30); Chloride 108 mmol/L (98-107); Glucose 178 mg/dl (70-99); Potassium 4.0 mmol/L (3.5-5.1); Sodium 139 mmol/L (135-145); Total Protein 7.5 g/dl (6.3-8.2); eGFR > 60.00
--- NOTE | 2025-06-01 16:30 | ED.GENMED ---
History of Present Illness
General
Chief Complaint: Abdominal Symptoms
Source: patient
Exam Limitations: none
Time Seen by Provider: 06/01/25 16:24
Nursing documentation reviewed up to this point in time: agreed with
History of Present Illness
History of Present Illness:
Patient is a 34-year-old female past with a history of cyclical vomiting, IBS presents to the ER for nausea vomiting diarrhea. Patient smokes marijuana every other day and has had this multiple times in the past. This feels similar. She woke up
vomiting since 5 AM. She complains abdominal pain. She states' they typically give me morphine for this as well.' She denies any fever or chills. She last smoked yesterday. She reports she does not like the way Haldol makes her feel.Pt was
previously seen here March 22 in the ER and discharged home and in October 2023 she required admission for this.
Past History
Past History
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
ED Past Surgical History: Gynecological
Patient has exhibited threatening behavior?: No
PSI?: No
Social History
Tobacco: Smoker
Alcohol: Occasional
Drug: Marijuana
Personal: Single
Living: with family
Employment: Employed
Family History
Family History: Other
Phy Exam
General Physical Exam
General Presentation: no apparent distress
General age: appears stated age
General Skin: warm and dry
General Habitus: normal
General Hydration: dry mucous membranes
Cardiovascular Exam
Cardiovascular Exam: regular rate/rhythm, no murmur and normal peripheral pulses
Pulmonary Exam
Pulmonary Exam: lungs clear and no respiratory distress
Gastrointestinal Exam
Gastrointestinal Exam: normal bowel sounds, non tender and soft
Neurological Exam
Neurological Exam: alert and oriented x3
Skin Exam
Skin Exam: normal color and warm/dry
Course
Orders/Labs/Results
Orders:
Orders
06/01/25 15:52
CMP [Comprehensive Metabolic Panel] Urgent
Complete Blood Count/With Diff Urgent
06/01/25 16:36
0.9% Sodium Chloride 1000 ml [Nss] 1,000 ml IV BOLUS
Dicyclomine HCl [Bentyl] 20 mg IM NOW STA
Ondansetron Injectable [Zofran] 4 mg IV NOW STA
06/01/25 18:09
Diphenhydramine [Benadryl] 25 mg IV NOW STA
Metoclopramide [Reglan] 10 mg IV NOW STA
Abnormal Lab Results
06/01/25
15:52
WBC 17.7 H 10^3/uL
(4.8-10.8)
Abs Immat Gran (auto) 0.1 H 10^3/uL
(0-0.05)
Absolute Neuts (auto) 15.8 H 10^3/uL
(1.4-6.5)
Neutrophils % 89.4 H %
(42.2-75.2)
Lymphocytes % 8.8 L %
(20.5-51.1)
Monocytes % 1.2 L %
(1.7-9.3)
Chloride 108 H mmol/L
(98-107)
Glucose 178 H mg/dl
(70-99)
06/01/25 15:52
06/01/25 15:52
Vital Signs
Initial and Last Documented VS:
Initial Vital Signs
Temp Pulse Resp BP Pulse Ox
98.0 F 73 20 113/78 98
06/01/25 15:50 06/01/25 15:50 06/01/25 15:50 06/01/25 15:50 06/01/25 15:50
Last Documented Vital Signs
Temp Pulse Resp BP Pulse Ox
98.0 F 72 18 130/85 98
06/01/25 15:50 06/01/25 18:11 06/01/25 18:11 06/01/25 18:11 06/01/25 18:11
MDM/Problems Addressed
Differential Diagnosis Includes:
Not limited to cannabinol hyperemesis vomiting dehydration electrolyte abnormality
MDM/Problems Addressed:
Symptoms are consistent with cannabinol hyperemesis. Patient was medicated feeling improved with no further vomiting.
White count elevated likely reactive, normal renal function .
I had a long discussion with patient regarding the importance of marijuana cessation.
Patient has a prescription for Zofran at home will discharge with outpatient follow-up
Chronic conditions affecting care:
anxiety and frequent marijuana use, history of cannabinol hyperemesis
*Pulse Oximetry
SaO2: 98
Oxygen Mode of Delivery: Room air
Patient hypoxic: no
*Critical Care Note
Total Time (30-74mins, 75-104mins- exclusive of procedures): Not Applicable
Data Reviewed
Review of Other/Old Records Reveals: Labs and Discharge Summary
ED Attending Note
-
Portions of this chart may have been created with voice recognition software.� Occasional wrong word or��sound alike� substitutions may have occurred due to the inherent limitations of voice recognition software.
Discharge Plan
Departure
Patient Disposition: Home (Routine Discharge)
Date of Disposition: 06/01/25
Time of Disposition: 19:18
Patient with high blood pressure during this ER visit?: Yes
Condition: Fair
Covid-19: Not Applicable
Discharge Problem:
Cannabinoid hyperemesis syndrome
Instructions: Nausea and Vomiting, Adult (DC)
Prescriptions:
No Action
ondansetron HCl 4 mg tablet
4 mg PO Q6H PRN (Reason: nausea and vomiting) Qty: 20 0RF
ondansetron 4 mg tablet,disintegrating
4 mg PO Q8H PRN (Reason: nausea and vomiting) 5 Days Qty: 14 0RF
Referrals:
NONE,* [Family Provider, Internal Medicine]
Activity Restrictions/Additional Instructions:
As discussed symptoms are consistent with cannabinoid hyperemesis syndrome.(This vomiting is caused from marijuana use. Is important that you stop using marijuana.) Please speak with your family doctor in order to further discuss management of
your anxiety instead of using marijuana. You may use your Zofran as needed for nausea. Follow-up with your family doctor in the next several days for reevaluation.
return if any worsening of symptoms.
Interventions
Interventions:
*General Assessment Last Done: 06/01/25 15:50
LK-Pnfhvo-Kcyrhjcowk Assessment Last Done: 06/01/25 17:01
Discharge Date and Time
Print Language: KHMER
[2025-06-01] MEDS: BENTYL 20 MG IM (16:42)
[2025-06-01] MEDS: NSS 1000 IV (16:42)
[2025-06-01] MEDS: ZOFRAN 4 MG IV (16:42)
[2025-06-01 18:11] VITALS: BP 130/85
[2025-06-01] MEDS: REGLAN 10 MG IV (18:14)
[2025-06-01] MEDS: BENADRYL 25 MG IV (18:14)
== END 2025-06-01 19:27 | disposition home or self-care (01) ==
LOC: EMR 15:47
PROVIDERS: Emergency Medicine; EMERGENCY PHYSICIAN Emergency Medicine
DX: R11.16 Cannabis hyperemesis syndrome (principal); R11.2 Nausea with vomiting, unspecified; F17.200 Nicotine dependence, unspecified, uncomplicated
CPT/HCPCS: 96374; 96375; 96372; 96361; 99284; 80053; 85025

== ENCOUNTER 2025-06-02 06:22 | Observation (INO) | payer OTHER, SELFPAY ==
[2025-06-02] VITALS (8 sets, daily range): BP systolic 103–135; BP diastolic 57–88; BMI 31.2; BMI 31.3
--- NOTE | 2025-06-02 04:14 | ED.GENMED ---
History of Present Illness
General
Chief Complaint: Abdominal Symptoms
Source: patient and records
Exam Limitations: none
Time Seen by Provider: 06/02/25 03:57
Nursing documentation reviewed up to this point in time: agreed with
History of Present Illness
History of Present Illness:
34-year-old female with past medical history as noted significant for multiple presentations with cannabinoid hyperemesis/cyclic vomiting who presents to the ER with nausea and vomiting. Patient reports symptoms have been ongoing for about 48
hours. She was notably seen yesterday, treated symptomatically and discharged. She reports profuse nausea, vomiting and dry heaving. She has some epigastric discomfort as well. Had some loose stools yesterday but none today. Denies fever or
chills. No urinary symptoms. She is currently on her menstrual period but no heavier bleeding than usual. Multiple presentations with similar; she reports continued marijuana use despite being counseled to discontinue use multiple times. She
says that she still uses marijuana because she has anxiety and admits that she has not explored other avenues to manage her anxiety.
Past History
Past History
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
ED Past Surgical History: Gynecological
Patient has exhibited threatening behavior?: No
PSI?: No
Social History
Tobacco: Smoker
Alcohol: Occasional
Drug: Marijuana
Personal: Single
Living: with family
Employment: Employed
Family History
Family History: Other
Review of Systems
Review of Systems
All Other Systems: ROS reviewed and negative except as documented in HPI and ROS
Constitutional: Denies fever or chills
Respiratory: Denies trouble breathing
Cardiac: Denies chest pain
ABD/GI: Reports abdominal pain, nausea and vomiting; Denies diarrhea
: Reports bleeding (Spotting, currently on her menstrual period); Denies dysuria, frequency or flank pain
Musculoskeletal: Denies neck pain or back pain
Neurological: Denies headache
Phy Exam
Physical Exam
Physical Exam:
General: Awake, alert, oriented x3; appears uncomfortable holding emesis bag
Head: Normocephalic, atraumatic
Eyes: Conjunctiva normal, sclera anicteric
Throat: Airway intact, somewhat dry mucous membranes
Neck: Trachea midline, supple without meningismus
Lungs: Clear to auscultation bilaterally, no wheezing, rales, rhonchi
Heart: Tachycardia with regular rhythm, no murmurs, gallops, or rubs
Abd: Soft, non distended, nontender to deep palpation
Neuro: Grossly intact
Skin: Warm and dry
Extremities: No edema in extremities, warm well-perfused
Scores
Heart Failure Risk
Heart Failure Risk Score: Not Applicable
Heart Score for Chest Pain Patients
STEMI patient?: Not applicable
Withdrawal Assessment of Alcohol
Withdrawal Assessment Completed?: Not applicable
Course
Orders/Labs/Results
Orders:
Orders
06/02/25 03:59
Test Result ONCE
06/02/25 04:03
Drug Screen, Urine [Urine Drug Abuse Screen] Urgent
Date Specimen was Collected: 06/02/25
Time Specimen was Collected: 04:13
Urinalysis Reflex To Culture Urgent
Date Specimen was Collected: 06/02/25
Time Specimen was Collected: 04:13
06/02/25 04:06
Electrocardiogram (*1) Urgent
Reason for Study: QTc Monitoring
EKG- Treatment ONCE
0.9% Sodium Chloride 1000 ml [Nss] 1,000 ml IV BOLUS
06/02/25 04:13
Lorazepam [Ativan] 1 mg IV NOW STA
06/02/25 04:40
Complete Blood Count/With Diff Urgent
Comprehensive Metabolic Panel Urgent
HCG, Serum Qualitative Screen Urgent
Lipase Urgent
06/02/25 04:59
Prochlorperazine [Compazine] 5 mg IV NOW STA
06/02/25 05:17
Diphenhydramine [Benadryl] 50 mg .ROUTE .STK-MED ONE
06/02/25 05:21
Diphenhydramine [Benadryl] 12.5 mg IV NOW STA
06/02/25 05:25
Potassium Chloride [KCl] 20 meq 0.9% Sodium Chloride 250 ml [Nss] 250 ml IV NOW
06/02/25 06:00
Ondansetron Injectable [Zofran] 4 mg IV NOW STA
Abnormal Lab Results
06/02/25
04:40
WBC 15.7 H 10^3/uL
(4.8-10.8)
MCHC 32.9 L g/dL
(33.0-37.0)
MPV 10.8 H fL
(7.4-10.4)
Abs Immat Gran (auto) 0.1 H 10^3/uL
(0-0.05)
Absolute Neuts (auto) 13.6 H 10^3/uL
(1.4-6.5)
Immature Gran % 0.7 H %
(0-0.5)
Neutrophils % 86.4 H %
(42.2-75.2)
Lymphocytes % 9.5 L %
(20.5-51.1)
Potassium 3.4 L mmol/L
(3.5-5.1)
BUN 5 L mg/dl
(7-17)
Glucose 139 H mg/dl
(70-99)
06/02/25 04:40
06/02/25 04:40
Vital Signs
Initial and Last Documented VS:
Initial Vital Signs
Temp Pulse Resp BP Pulse Ox
36.9 C 116 16 122/84 97
06/02/25 03:59 06/02/25 03:59 06/02/25 03:59 06/02/25 03:59 06/02/25 03:59
Last Documented Vital Signs
Temp Pulse Resp BP Pulse Ox
36.9 C 100 27 107/57 96
06/02/25 03:59 06/02/25 05:30 06/02/25 05:30 06/02/25 05:00 06/02/25 05:30
MDM/Problems Addressed
Differential Diagnosis Includes:
Cannabinol hyperemesis, cyclic vomiting, gastritis, pancreatitis, cholelithiasis/cholecystitis
MDM/Problems Addressed:
34-year-old female presents for evaluation of nausea and vomiting�seen yesterday and treated symptomatically, returns with continued nausea and vomiting. She has a history of multiple presentations with cyclic vomiting/cannabinoid hyperemesis and
reports symptoms today identical. She admits to continued marijuana use. She is tachycardic but otherwise normal vitals. Physical exam as above. Plan to check repeat labs, lipase, hCG. Provide fluids. She already took Zofran at home and
received Zofran earlier which has not managed her symptoms well. She has not tolerated Haldol or Reglan in the past she says. Check an EKG for QT monitoring. Treat with IV Ativan. Consider capsaicin. At this point no indication for emergent
abdominal imaging as she has only mild epigastric pain, main complaint is nausea and vomiting; she has no tenderness on abdominal examination and overall her clinical picture is consistent with previous presentations for cannabinol hyperemesis.
Labs reviewed�CBC shows improving leukocytosis likely stress reaction. Chemistry shows mild hypokalemia which were repleted IV. hCG negative. Clinical reassessment patient still nauseated after Ativan will treat with IV Compazine and Benadryl.
Patient still nauseous, vomiting after meds as above. Will trial Zofran IV although no improvement with ODT Zofran earlier. At this point this is patient's second visit with intractable symptoms and she has required multiple rounds of parenteral
meds and still unable to tolerate oral intake�will admit for continued management. Discussed with hospitalist.
Chronic conditions affecting care:
Cannabinoid dependence
*Pulse Oximetry
SaO2: 97
Oxygen Mode of Delivery: Room air
Patient hypoxic: no (97%)
*EKG
Interpreted by ED Provider?: Yes
Heart Rate: 83
Rate: normal
Rhythm: sinus
[place]: normal axis
Interval: normal interval and normal QT interval
QRS Pattern: normal QRS
Ischemia: no ischemia
*Critical Care Note
Total Time (30-74mins, 75-104mins- exclusive of procedures): Not Applicable
Data Reviewed
Review of Other/Old Records Reveals: Labs, Records and Discharge Summary
Source: patient and records
Further Testing Considered But Not Given:
Considered CT abdomen, abdominal ultrasound
Patient Management
Discussion with other providers: Hospitalist (Discussed with hospitalist)
Escalation/DeEscalation of care consider admission/obs:
Admission indicated
ED Attending Note
-
Portions of this chart may have been created with voice recognition software.� Occasional wrong word or��sound alike� substitutions may have occurred due to the inherent limitations of voice recognition software.
Discharge Plan
Departure
Patient Disposition: Admit
Date of Disposition: 06/02/25
Time of Disposition: 06:02
Admit to doctor: [facility]
Presentation/result/management discussed w/ accepting MD/DO: Hospitalist
Discharge Problem:
Intractable nausea and vomiting
Prescriptions:
No Action
ondansetron HCl 4 mg tablet
4 mg PO Q6H PRN (Reason: nausea and vomiting) Qty: 20 0RF
ondansetron 4 mg tablet,disintegrating
4 mg PO Q8H PRN (Reason: nausea and vomiting) 5 Days Qty: 14 0RF
Referrals:
NONE,* [Family Provider, Internal Medicine]
Interventions
Interventions:
*Risk Screen - Suicide Last Done: 06/02/25 03:59
*General Assessment Last Done: 06/02/25 03:59
*Neglect/Abuse Screening Last Done: 06/02/25 03:59
*ED- Fall Risk Assessment Last Done: 06/02/25 03:59
*ED COVID-19 Vaccine History Last Done: 06/02/25 03:59
*ED Influenza Vaccine History Last Done: 06/02/25 03:59
MZ-Njvrzs-Jbyotadttn Assessment Last Done: 06/02/25 04:10
Discharge Date and Time
Print Language: MICRONESIAN
[2025-06-02] MEDS: NSS 1000 IV (04:25)
[2025-06-02] MEDS: ATIVAN 1 MG IV (04:27)
[2025-06-02 05:00] LABS: Hematocrit 41.3 % (37.0-47.0); Hemoglobin 13.6 g/dL (12.0-16.0); Mean Corp Hgb Conc. 32.9 g/dL (33.0-37.0); Mean Corpuscular Volume 85.9 fL (81.0-99.0); Nucleated Red Blood Cells % 0 %; Platelet Count 358 10^3/uL (130-400); Red Cell Dist. Width 13.4 % (11.5-14.5)
[2025-06-02 05:04] LABS: HCG, Serum Qualitative Screen Negative
[2025-06-02 05:18] LABS: AST (SGOT) 18 U/L (14-36); Albumin 5.0 g/dl (3.5-5.0); Alkaline Phosphatase 46 U/L (38-126); Blood Urea Nitrogen 5 mg/dl (7-17); Calcium 9.8 mg/dl (8.4-10.2); Carbon Dioxide 25 mmol/L (22-30); Chloride 101 mmol/L (98-107); Estimated Creatinine Clearance 109 ml/min; Glucose 139 mg/dl (70-99); Lipase 33 U/L (23-300); Potassium 3.4 mmol/L (3.5-5.1); Sodium 140 mmol/L (135-145); Total Protein 7.8 g/dl (6.3-8.2); eGFR > 60.00
[2025-06-02] MEDS: BENADRYL 12.5 MG IV (05:21)
[2025-06-02] MEDS: COMPAZINE 5 MG IV (05:23)
[2025-06-02 05:28] LABS: ALT (SGPT) 22 U/L (0-35)
[2025-06-02] MEDS: KCL 260 MEQ IV (05:34)
--- NOTE | 2025-06-02 06:06 | HPS.HSE ---
Family Physician
-
Family Physician: * NONE
Chief Complaint
-
Intractable emesis
History of Present Illness
This is a 34-year-old female with past medical history significant for chronic cannabis use, history of cannabinoid hyperemesis who presents to the emergency department with intractable nausea and vomiting.
Patient first presented to the ED 1 day or afternoon ago with nausea vomiting that was nonbloody and nonbilious. She also reported some abdominal pain. She was treated for symptoms at that time. Blood work was unremarkable. No imaging was done
given frequent prior presentations. She felt better enough to be discharged. She requested not to be given Haldol for nausea. She reports that she has continued to use cannabis every other day. She denies alcohol use. She denies any melena or
hematochezia.
She presents again after being discharged with ongoing vomiting. She reports she is continue to smoke marijuana about twice a day. She denies any alcohol use. She denies any history of gallstones or pancreatitis.
Currently in the emergency department she received multiple rounds of antiemetics including Compazine, lorazepam, Benadryl, ondansetron. She is hemodynamically stable, afebrile blood sugar was 1 7/57 with a pulse of 100 and she was satting 96% on
room air. ECG shows a normal sinus rhythm at a rate of 83. QTc was 430. This is unchanged from prior. CBC shows a leukocytosis to 15 but otherwise unremarkable. Electrolytes show a potassium of 3.4 otherwise unremarkable with a normal BUN and
creatinine.
Medical History
Past Medical History
Past Medical History: Reports Other
Additional Past Medical History:
Irritable Bowel Syndrome
Cyclic Vomiting Syndrome
GERD
Anxiety / Depression
Past Surgical History: Reports None
Social History
Tobacco: Smoker (1/2 pack per day)
Alcohol: Occasional (Occasional glass of wine on weekends)
Drug: Marijuana (Twice daily)
Family History
Family History: Not pertinent
Allergies / Home Medications
Allergies reflects when Allergies were last updated in [employer].
Home Medications with original date entered in [employer]
Allergy/Medication List:
Allergies
Allergy/AdvReac Type Severity Reaction Status Date / Time
No Known Allergies Allergy Verified 06/02/25 03:58
Home Medications
ondansetron 4 mg disintegrating tablet 4 mg PO Q8H PRN nausea and vomiting 5 days #14 tabs 03/22/25
Review of Systems
-
A 12 point ROS was completed and negative except as noted: Yes
Constitutional: Denies Fever or Chills
Respiratory: Denies Cough or Trouble Breathing
Cardiac: Denies Chest Pain or Palpitations
Abdomen/GI: Reports Nausea and Vomiting
: Reports No Symptoms
Musculoskeletal: Reports No Symptoms
Skin: Reports No Symptoms
Neurological: Reports No Symptoms
Endocrine: Reports No Symptoms
Hematologic/Lymphatic: Reports No Symptoms
Psych: Reports No Symptoms
Physical Exam
Vital Signs
Vital Signs
Temp Pulse Resp BP Pulse Ox
98.5 F 87 17 120/73 99
06/02/25 03:59 06/02/25 06:03 06/02/25 06:03 06/02/25 06:02 06/02/25 05:50
Physical Exam
General: Comfortable and Conversant
HEENT: Anicteric and Atraumatic
Respiratory: Clear and Non Labored Respirations
Cardiac: S1/S2 and Regular Rhythm
GI: Soft and Tender (Mild soreness throughout, without rebound or guarding)
Rectal: Deferred by Provider
Musculoskeletal: No Clubbing, No Cyanosis and No Edema
Skin: Warm and Dry
Neuro: AO x 3 and Nonfocal/grossly intact
Psych: Calm
Laboratory Results
-
06/02/25 04:40
06/02/25 04:40
Laboratory Results
Total Bilirubin 0.4 mg/dl (0.2-1.3) 06/02/25 04:40
AST 18 U/L (14-36) 06/02/25 04:40
ALT 22 U/L (0-35) 06/02/25 04:40
Alkaline Phosphatase 46 U/L (38-126) 06/02/25 04:40
Lipase 33 U/L (23-300) 06/02/25 04:40
Data Reviewed
-
Medical Tests (Nuc Med, Echo, EKG etc): Image Personally Visualized and interpreted
Lab Data: Labs Reviewed by me
Old Records: Reviewed
Impression/Plan
-
IMPRESSION:
34-year-old with history of irritable bowel syndrome, marijuana use and history of cannabinoid hyperemesis presents to the emergency department with intractable nausea vomiting over the last 24 hours, nonbloody and nonbilious. She continues to use
marijuana on a regular basis. She has been treated in the emergency department for some time now and still has emesis and is unable to keep any p.o. down.
PLAN:
Cannabinoid hyperemesis
� Admit to MedSurg observation
� N.p.o. for now
� Continue IV fluids
� Will continue ondansetron, Benadryl and lorazepam as needed�
� Famotidine twice daily IV
� Consider Reglan [id number]
� No narcotics
� f/u Urine drug screen pending
DVT prophylaxis�SCDs
CODE STATUS�full code
[2025-06-02] MEDS: ZOFRAN 4 MG IV ×2 (06:08→17:15)
[2025-06-02 06:22] LABS: Urine Character Clear (Clear)
[2025-06-02 07:19] LABS: Urine Red Blood Cell 0-2 /HPF (0-2); Urine Squamous Cell 0-2 /LPF (Few); Urine White Cell 0-2 /HPF (0-5)
--- NOTE | 2025-06-02 08:15 | PTCARENOTE ---
06/02- Patient transferred and oriented to unit without issue. AAOX3, lethargic, nauseous, denies any current pain. Skin warm/pink/dry. Patient denies any further needs at this time.
[2025-06-02] MEDS: PEPCID 20 MG IV ×2 (08:50→19:45)
[2025-06-02] MEDS: D5/0.9% SODIUM CHLORIDE 1000 IV (08:50)
[2025-06-02] MEDS: NSS (PRESERVATIVE FREE) 8 ML IV ×2 (08:51→19:45)
[2025-06-02] MEDS: 0.45% NACL with KCL 20 MEQ 1000 IV ×2 (09:30→22:48)
[2025-06-02] MEDS: ZOSTRIX-HP 0.075% CREAM 1 APPLIC TOPICAL (09:31)
--- NOTE | 2025-06-02 13:52 | W.PN.HOSP.TC ---
Today's Communication/Plan
-
See plan
Assessment / Plan
Assessment / Plan
IMPRESSION:
34-year-old with history of irritable bowel syndrome, marijuana use and history of cannabinoid hyperemesis presents to the emergency department with intractable nausea vomiting over the last 24 hours, nonbloody and nonbilious. She continues to use
marijuana on a regular basis. She has been treated in the emergency department for some time now and still has emesis and is unable to keep any p.o. down.
Cannabinoid hyperemesis syndrome.
Suspect multisubstance abuse: Urine drug screen positive for marijuana and cocaine.
Symptomatic treatment including antiemetics and histamine receptor blockers.
Start topical capsicin (off label recommendation)
IV hydration
Monitor electrolytes
Advance diet as tolerates
Discussed option of Haldol and standing dose of Reglan if no improvement with above
Counseled on drug abuse and quitting marijuana
Anticipated Discharge: 24 - 48 hours
Subjective/Interval History
-
Date of Service: June 02, 2025
Objective Data
-
Labs:
Laboratory Results
06/02/25
04:40
WBC 15.7 H
Hgb 13.6
Hct 41.3
Plt Count 358
Sodium 140
Potassium 3.4 L
Chloride 101
Carbon Dioxide 25
BUN 5 L
Creatinine 0.8
Glucose 139 H
Calcium 9.8
Total Bilirubin 0.4
AST 18
ALT 22
Alkaline Phosphatase 46
Vital Signs:
Vital Signs
Temp Pulse Resp BP Pulse Ox
97.6 F 68 18 134/75 99
06/02/25 08:27 06/02/25 08:27 06/02/25 08:27 06/02/25 08:27 06/02/25 08:27
Physical Exam
-
General: Well Developed and No Apparent Distress
HEENT: Normocephalic, Atraumatic and Moist Mucous Membranes
Respiratory: Clear to Auscultation
Cardiac: Regular Rhythm and S1/S2; Negative Murmur, Rub or Gallop
GI: Soft, Nontender, Nondistended and Normal Bowel Sounds; Negative Organomegaly
Rectal: Deferred by Provider
Musculoskeletal: No Clubbing, No Cyanosis and No Edema
Skin: Negative Rash
Neuro: Nonfocal/Grossly Intact
[2025-06-03] MEDS: ZOFRAN 4 MG IV (00:40)
[2025-06-03 07:20] VITALS: BP 135/83
[2025-06-03] MEDS: NSS (PRESERVATIVE FREE) 8 ML IV (07:44)
[2025-06-03] MEDS: PEPCID 20 MG IV (07:44)
[2025-06-03] MEDS: 0.45% NACL with KCL 20 MEQ 1000 IV (07:45)
[2025-06-03 08:02] LABS: ALT (SGPT) 15 U/L (0-35); AST (SGOT) 15 U/L (14-36); Albumin 3.4 g/dl (3.5-5.0); Alkaline Phosphatase 39 U/L (38-126); Blood Urea Nitrogen 6 mg/dl (7-17); Calcium 8.4 mg/dl (8.4-10.2); Carbon Dioxide 25 mmol/L (22-30); Chloride 106 mmol/L (98-107); Estimated Creatinine Clearance 124 ml/min; Glucose 105 mg/dl (70-99); Potassium 3.9 mmol/L (3.5-5.1); Sodium 134 mmol/L (135-145); Total Protein 5.8 g/dl (6.3-8.2); eGFR > 60.00
--- NOTE | 2025-06-03 10:32 | CM ---
Addendum entered by Bryan Davis 06/03/25 10:35:
OBS form signed.
Original Note:
I.A: Completed By PIPPA Adams
Patient lives with her & Daughter in a [address]. No DME, No VN/PT, No Inpatient Rehab.
PCP: None at this time- difficult finding a doctor who accepts her insurance.
Pharmacy: [facility] [address]/ [place]
Patient has transportation. Patient was offered D&A resources, but refused. PLAN: Anticipate Home No Needs.
--- NOTE | 2025-06-03 12:57 | W.DS.TRANS ---
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
-
Discharge Instructions:
Discharge Diagnosis/Procedures Cannabinoid hyperemesis syndrome.
Diet Regular
Instructions:
Stand-Alone Forms:
Changes to Home Medications: No
Discharge Medications:
DC Medications w/original date entered in [facility]
ondansetron 4 mg disintegrating tablet 4 mg PO Q8H PRN nausea and vomiting 5 days #14 tabs 03/22/25
Home Medication Changes
Pending Results: No
--- NOTE | 2025-06-03 12:59 | CM ---
F/U: Patient discharge home. PLAN: Home No Needs.
[2025-06-03 13:11] VITALS: BP 127/84
== END 2025-06-03 13:33 | disposition home or self-care (01) ==
LOC: 4 WEST ACU 06:22
PROVIDERS: ADMITTING PHYSICIAN Internal Medicine; ATTENDING PHYSICIAN Internal Medicine; EMERGENCY PHYSICIAN Emergency Medicine
DX: R11.16 Cannabis hyperemesis syndrome (principal); R10.9 Unspecified abdominal pain; R11.2 Nausea with vomiting, unspecified; R19.7 Diarrhea, unspecified; F12.90 Cannabis use, unspecified, uncomplicated; F41.9 Anxiety disorder, unspecified; K58.9 Irritable bowel syndrome, unspecified; F17.210 Nicotine dependence, cigarettes, uncomplicated; D72.829 Elevated white blood cell count, unspecified; E87.6 Hypokalemia; K21.9 Gastro-esophageal reflux disease without esophagitis; I49.8 Other specified cardiac arrhythmias; F19.10 Other psychoactive substance abuse, uncomplicated; Z87.440 Personal history of urinary (tract) infections
CPT/HCPCS: 80053; 80306; 80307; 81003; 81015; 83690; 84703; 85025; 93005; 96361; 96374; 96375; 99285; G0378; J3480